=== PATIENT | male | born 1960 | race Caucasian/White ===

== ENCOUNTER 2016-07-26 13:05 | Outpatient (CLI) ==
[2016-07-26 13:26] LABS: BASOPHILS # (AUTO) 0.1 K/uL (0-0.2); BASOPHILS % (AUTO) 0.6 % (0.0-3.0); EOSINOPHILS % (AUTO) 0.2 % (0.0-7.0); HEMATOCRIT 38.5 % (42.0-52.0); HEMOGLOBIN 13.9 g/dl (14.0-18.0); IMMATURE GRANULOCYTE % (AUTO) 0.2 % (0.0-5.0); LYMPHOCYTES # (AUTO) 2.6 K/uL (0.60-3.4); LYMPHOCYTES % (AUTO) 21.2 (10.0-50.0); MEAN CORPUSCULAR HEMOGLOBIN 32.3 pg (27.0-31.0); MEAN CORPUSCULAR HGB CONC 36.1 (31.8-35.4); MEAN CORPUSCULAR VOLUME 89.3 fl (80.0-94.0); MONOCYTES # (AUTO) 0.7 K/uL (0.4-2.0); NEUTROPHILS # (AUTO) 8.8 K/ul (2.0-6.9); NEUTROPHILS % (AUTO) 71.8; PLATELET COUNT 293 10^3/uL (140-440); RED BLOOD COUNT 4.31 10^6/ul (4.70-6.10); WHITE BLOOD COUNT 12.19 K/ul (4.2-10.2)
[2016-07-26 13:32] LABS: BILIRUBIN,URINE 1+ (NEGATIVE); KETONES,URINE 1+ (NEGATIVE); LEUKOCYTE ESTERASE ,URINE Negative (NEGATIVE); NITRITE,URINE Negative (NEGATIVE); PH,URINE 5.5 (5-9); PROTEIN,URINE 1+ (NEGATIVE); URINE, BLOOD 1+ (NEGATIVE)
--- NOTE | 2016-07-26 13:37 | DI ---
EXAM: Single view of the abdomen. History: Lower back pain. Findings: Nonspecific but nonobstructive bowel gas pattern. No suspicious calcifications. No free intraperitoneal air and no acute osseous abnormalities. Impression: No acute radiographic findings within the abdomen.
[2016-07-26 13:44] LABS: ADD URINE MICROSCOPIC YES
[2016-07-26 13:45] LABS: BACTERIA,URINE 1+ (NOT PRESENT)
[2016-07-26 14:02] LABS: ALBUMIN 3.8 g/dL (3.4-5.0); ALBUMIN/GLOBULIN RATIO 1.12; ANION GAP 15.8; BILIRUBIN,TOTAL 0.66 mg/dL (0.00-1.20); BUN/CREATININE RATIO 16.66; CALCIUM 8.6 mg/dL (8.2-10.2); CHOL/HDL RATIO 2.5 (4.5-6.4); CREATININE 1.02 mg/dL (0.60-1.10); POTASSIUM 3.8 mmol/L (3.5-5.1); TOTAL PROTEIN 7.2 g/dL (6.4-8.2)
[2016-07-28 08:44] LABS: FREE TESTOSTERONE 6.8 pg/mL (7.2-24.0)
== END 2016-07-26 13:06 | disposition home or self-care (01) ==
LOC: RAD 13:05
PROVIDERS: ATTEND Nurse Practitioner Family
DX: B18.2 Chronic viral hepatitis C (principal); M54.5 Low back pain; R76.11 Nonspecific reaction to tuberculin skin test without active tuberculosis
CPT/HCPCS: 36415; 80053; 80061; 80074; 81001; 84402; 84439; 84443; 85025; 87086

== ENCOUNTER 2016-09-20 16:30 | Outpatient (CLI) ==
[2016-09-23 12:01] LABS: HEPATITIS B SURFACE ANTIBODY Reactive (.)
== END 2016-09-20 16:31 | disposition home or self-care (01) ==
LOC: LAB 16:30
PROVIDERS: ATTEND Nurse Practitioner Family
DX: B18.2 Chronic viral hepatitis C (principal); R73.09 Other abnormal glucose
CPT/HCPCS: 36415; 80307; 83036; 86706; 86709

== ENCOUNTER 2016-11-19 09:33 | Outpatient (CLI) ==
[2016-11-19 09:48] LABS: BASOPHILS % (AUTO) 0.5 % (0.0-3.0); EOSINOPHILS # (AUTO) 0.1 K/ul (0.0-0.7); EOSINOPHILS % (AUTO) 1.6 % (0.0-7.0); HEMATOCRIT 41.2 % (42.0-52.0); HEMOGLOBIN 14.5 g/dl (14.0-18.0); IMMATURE GRANULOCYTE % (AUTO) 0.2 % (0.0-5.0); LYMPHOCYTES # (AUTO) 1.6 K/uL (0.60-3.4); MEAN CORPUSCULAR HEMOGLOBIN 33.3 pg (27.0-31.0); MEAN CORPUSCULAR HGB CONC 35.2 (31.8-35.4); MEAN CORPUSCULAR VOLUME 94.5 fl (80.0-94.0); MONOCYTES # (AUTO) 0.8 K/uL (0.4-2.0); NEUTROPHILS # (AUTO) 3.1 K/ul (2.0-6.9); NEUTROPHILS % (AUTO) 54.7; PLATELET COUNT 214 10^3/uL (140-440); RED BLOOD COUNT 4.36 10^6/ul (4.70-6.10); WHITE BLOOD COUNT 5.58 K/ul (4.2-10.2)
[2016-11-19 10:09] LABS: ALBUMIN 3.4 g/dL (3.4-5.0); ALBUMIN/GLOBULIN RATIO 1.06; BILIRUBIN,TOTAL 0.44 mg/dL (0.00-1.20); BUN/CREATININE RATIO 7.54; CALCIUM 8.9 mg/dL (8.2-10.2); CHOL/HDL RATIO 2.2 (4.5-6.4); CREATININE 1.06 mg/dL (0.60-1.10); TOTAL PROTEIN 6.6 g/dL (6.4-8.2)
--- NOTE | 2016-11-19 10:24 | CT ---
Exam: CT lumbar spine HISTORY: Lumbago with sciatica, right side. Low back pain going down right leg. Fell 2 days ago a nd pain since. Procedures: 2 mm contiguous axial images were obtained through the lumbar spine without the use of contrast. Sagittal and coronal reformatted images were also created and reviewed. Findings: There are no radiographs or other prior studies of the lumbar spine at this institution. T here are five [id number], lumbarized vertebrae in approximate anatomic alignment. There is no acute fracture or listhesis. Bridging osteophytes are noted in the bilateral sacroiliac joints. The a mild were removed and an addendum and the limited visualization of the adjacent soft tissues demo nstrates atherosclerotic calcifications, without aortic aneurysm. There is no paraspinal fluid ayesha ection. Individual disc levels are evaluated as follows At T12-L1 there is no significant disc bulge, central spinal canal or neural foraminal stenosis. At L1-2 there is a minimal disc bulge without central spinal canal stenosis. There is mild neural f oraminal stenosis secondary to disc bulge, facet and uncinate hypertrophy combining with congenitall y shortened pedicles. At L2-3 there is a minimal disc bulge without central spinal canal stenosis. There is mild neural f oraminal stenosis secondary to disc bulge, facet and uncinate hypertrophy combining with congenitall y shortened pedicles. At L3-4 there is a minimal disc bulge without central spinal canal stenosis. There is mild neural f oraminal stenosis secondary to disc bulge, facet and uncinate hypertrophy combining with congenitall y shortened pedicles. At L4-5 there is a mild broad-based disc bulge without central spinal canal stenosis. There is mode rate neural foraminal stenosis secondary to disc bulge, facet and uncinate hypertrophy combining wit h congenitally shortened pedicles. At L5-S1 there is a mild broad-based disc bulge without central spinal canal stenosis. There is mil d neural foraminal stenosis secondary to disc bulge, facet and uncinate hypertrophy combining with c ongenitally shortened pedicles. Impressions: No acute fracture or listhesis in the lumbar spine. No central spinal canal stenosis. Moderate neural foraminal stenosis bilaterally at L4-5 and mild neural foraminal stenosis bilaterall y at L1-2, L2-3, L3-4 and L5-S1 secondary to disc bulge, facet and uncinate hypertrophy combining wi th congenitally shortened pedicles. Given the history of radiculopathy, consider MRI of the lumbar spine for more sensitive evaluation o f potential neural impingement. Bridging osteophytes at the sacroiliac joints.
== END 2016-11-19 09:34 | disposition home or self-care (01) ==
LOC: RAD 09:33
PROVIDERS: ATTEND Nurse Practitioner Family
DX: M54.41 Lumbago with sciatica, right side (principal); R15.9 Full incontinence of feces; F41.1 Generalized anxiety disorder; R73.09 Other abnormal glucose
CPT/HCPCS: 36415; 80053; 80061; 83036; 85025

== ENCOUNTER 2016-11-22 09:53 | Outpatient (CLI) ==
--- NOTE | 2016-11-22 16:19 | MRI ---
EXAM: MRI lumbar spine without IV contrast. DATE: 11/22/2016. HISTORY: Lumbago with right-sided sciatica.. TECHNIQUE: Sagittal and axial T1W and T2W sequences of the lumbar spine along with sagittal IR and coronal T2W sequences were obtained using 1.2 Pearl magnet. No IV contrast.. COMPARISON: [facility] [address] L-spine 11/19/2016. FINDINGS: There are five kga-ikp-euqqjge lumbar vertebra. Alignment of the lumbar spine is normal. No acute lumbar fracture, subluxation, osseous malignancy, or pars interarticularis defect is demo nstrated. Lumbar vertebra are normal in height. Bone marrow signal is normal. Intervertebral disc s are normal in height and signal. No sacral fracture or stress reaction is detected. Patchy areas of fatty infiltration are note within the iliac bones and sacral ala. No acute sacroiliitis is det ected. Conus medullaris terminates at L1-2. Visible spinal cord is normal. No retroperitoneal lymphadenopathy, paraspinal mass, or aortic aneurysm is detected. Paraspinal mus culature is symmetric bilaterally. Visible portions of the liver, spleen, adrenal glands and right kidney are normal. A T2W bright, T1W dark, 6.7 mm focus in the anterior cortex upper pole left kidn ey corresponds with a low-density (HU = 14) lesion on CT scan. T2W bright signal along the outer me dial or lateral margins of the gallbladder are noted on axial images. No definitive gallstones. Segmental analysis: T12-L1: Normal. L1-2: Normal. L2-3: Minor posterior to foraminal disc bulge causes mild right and minor/mild left foraminal narro wing. No central canal stenosis. L3-4: Small posterior to foraminal disc bulge causes mild/moderate narrowing at the opening to each foramen. No central canal stenosis. L4-5: Small posterior to foraminal disc bulge and minor facet disease cause moderate to marked narr owing at the opening to each foramen. No central canal stenosis. L5-S1: Small posterior to foraminal disc bulge and minor facet disease cause mild bilateral foramin al narrowing. No central canal stenosis. IMPRESSIONS: 1. Lumbar spine small physiologic disc bulges and minor facet disease cause multilevel foraminal st enoses as listed above. 2. No lumbar spine central canal stenosis. 3. Left kidney benign-appearing cortical cyst. Unexpected findin. T2W bright signal suggesting artifact vs pericholecystic fluid vs gallbladd er wall thickening. Correlate with clinical symptoms. If indicated, gallbladder ultrasound is gomez mmended.
== END 2016-11-22 09:54 | disposition home or self-care (01) ==
LOC: RAD 09:53
PROVIDERS: ATTEND Nurse Practitioner Family
DX: M54.41 Lumbago with sciatica, right side (principal)

== ENCOUNTER 2016-11-26 08:24 | Outpatient (CLI) ==
--- NOTE | 2016-11-26 09:02 | US ---
EXAM: RENAL ULTRASOUND, BILATERAL HISTORY: Acquired cyst of kidney, left seen on MRI FINDINGS: Ultrasound renal, bilateral. Rodríguez-scale ultrasound and color Doppler imaging was perform ed. The right kidney measures 11.2 x 3.7 x 5.7 centimeters. The left kidney measures 10.6 x 5.7 x 4.7 centimeters. General cortical echogenicity and volume are normal for age. The left renal cyst described on MRI wa s not found sonographically. No hydronephrosis. Urinary bladder was within normal limits. IMPRESSION: The left renal cyst described on MRI was not identified. The exam was within normal limits sonograp hically.
== END 2016-11-26 08:25 | disposition home or self-care (01) ==
LOC: RAD 08:24
PROVIDERS: ATTEND Nurse Practitioner Family
DX: N28.1 Cyst of kidney, acquired (principal)
CPT/HCPCS: 76770

== ENCOUNTER 2016-12-12 10:41 | Outpatient (CLI) ==
--- NOTE | 2016-12-12 12:11 | DI ---
EXAM: Chest two view, frontal and lateral views. HISTORY: Cough. COMPARISON: 01/31/2012. FINDINGS: The heart size is normal. There is no pulmonary vascular congestion. The lungs are mimi r save for calcified granulomatous changes. No pleural effusion or pneumothorax is seen. No acute osseous abnormality identified. Since the prior study, there has been no significant interval crandall e. IMPRESSION: No acute cardiopulmonary process.
== END 2016-12-12 10:42 | disposition home or self-care (01) ==
LOC: RAD 10:41
PROVIDERS: ATTEND Nurse Practitioner Family
DX: R05 Cough (principal); F17.200 Nicotine dependence, unspecified, uncomplicated; B18.2 Chronic viral hepatitis C
CPT/HCPCS: 36415; 80306; 80307; 86705; 86706; 86709

== ENCOUNTER 2016-12-12 13:54 | Outpatient (CLI) ==
[2016-12-12 16:03] LABS: COCAIN SCREEN,URINE NEGATIVE (NEGATIVE)
[2016-12-13 06:12] LABS: HEPATITIS B SURFACE ANTIBODY Reactive (.)
== END 2016-12-12 13:55 | disposition home or self-care (01) ==
LOC: LAB 13:54
PROVIDERS: ATTEND Nurse Practitioner Family
DX: B18.2 Chronic viral hepatitis C (principal)
CPT/HCPCS: 36415; 80306; 80307; 86705; 86706; 86709

== ENCOUNTER 2017-04-26 14:46 | Outpatient (CLI) | payer OTHER | END 2017-04-26 14:47 | disposition home or self-care (01) | LOC: LAB 14:46 | PROVIDERS: ATTEND Nurse Practitioner Family | DX: B18.2 Chronic viral hepatitis C (principal); R74.8 Abnormal levels of other serum enzymes; Z87.898 Personal history of other specified conditions | CPT/HCPCS: 36415; 80306 ==

== ENCOUNTER 2017-05-29 16:12 | Outpatient (CLI) | payer OTHER | END 2017-05-29 16:13 | disposition home or self-care (01) | LOC: LAB 16:12 | PROVIDERS: ATTEND Nurse Practitioner Family | DX: K74.60 Unspecified cirrhosis of liver (principal); F41.1 Generalized anxiety disorder; Z79.899 Other long term (current) drug therapy; Z12.5 Encounter for screening for malignant neoplasm of prostate | CPT/HCPCS: 36415; 80053; 80306; 81001; 82150; 83690; 85025 ==